=== PATIENT | female | born 1960 | race Caucasian/White ===

== ENCOUNTER 2018-11-24 18:22 | Emergency (ER) | payer SELFPAY ==
[~2018-11-24] VITALS: Ht 157.5 cm; Wt 72.6 kg
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
[2018-11-24] MEDS ORDERED: MORPHINE SULFATE INJ 4 MG/ML DISP.SYRIN ONE (19:58)
[2018-11-24] MEDS ORDERED: ONDANSETRON HCL/PF 4 MG/2 ML VIAL ONE (19:58)
[2018-11-24] MEDS ORDERED: ONDANSETRON HCL/PF 4 MG/2 ML VIAL IV ONE (20:00)
[2018-11-24] MEDS ORDERED: MORPHINE SULFATE INJ 2 MG/ML DISP.SYRIN IV ONE (20:00)
[2018-11-24] MEDS ORDERED: IV NS 0.9% 1,000 ML BAG IV ONE (20:00)
--- NOTE | 2018-11-24 20:00 | NUR ---
IV LINE OBTAINED ON R AC 18G. BLOOD DRAWN AND GIVEN TO TECH AT BEDSIDE.
[2018-11-24 20:03] LABS: BASOPHILS % (AUTO) 0.6 % (0.0-2.0); EOSINOPHILS % (AUTO) 0.9 % (0.0-6.0); HEMATOCRIT 41 % (33-45); HEMOGLOBIN 13.9 g/dL (11.5-14.8); LYMPHOCYTES # (AUTO) 1.6 /CMM (0.8-4.8); LYMPHOCYTES % (AUTO) 31.2 % (20.0-44.0); MEAN CORPUSCULAR HGB CONC 34 g/dl (31.0-36.0); MEAN CORPUSCULAR VOLUME 86 fL (82-100); MONOCYTES # (AUTO) 0.4 /CMM (0.1-1.30); MONOCYTES % (AUTO) 8.4 % (2.0-12.0); NEUTROPHILS # (AUTO) 3.1 /CMM (1.8-8.9); NEUTROPHILS % (AUTO) 58.9 % (43.0-81.0); PLATELET COUNT (AUTO) 236 /CMM (150-450); RED BLOOD CELL COUNT(AUTO) 4.72 MIL/uL (4.0-5.2); WHITE BLOOD COUNT (AUTO) 5.2 K/uL (4.3-11.0)
[2018-11-24 20:06] LABS: CREATININE 0.7 mg/dL (0.6-1.3); POTASSIUM 3.7 mmol/L (3.5-5.1)
--- NOTE | 2018-11-24 20:40 | NUR ---
RADIOLOGY CALLED FOR PT'S CT.
--- NOTE | 2018-11-24 20:50 | NUR ---
PT BEING WHEELED TO RADIOLOGY VIA [facility] FOR CT
[2018-11-24] MEDS ORDERED: IOHEXOL-300 100 ML VIAL IV ONE (20:55)
--- NOTE | 2018-11-24 21:05 | NUR ---
PT BACK FROM CT
--- NOTE | 2018-11-24 21:24 | NUR ---
PT TO BATHROOM VIA WHEELCHAIR ASSISTED BY HER NEIGHBOR.
--- NOTE | 2018-11-24 22:35 | NUR ---
AM,Patient discharged to home in stable condition. Written and verbal after care instructions given. Patient verbalizes understanding of instruction.IV removed. Catheter intact and site benign. Pressure and 4x4 applied to site. No bleeding noted. Pt ambulatory with a steady gait
[2018-11-24 22:51] VITALS: BP 109/68
== END 2018-11-24 22:35 | disposition home or self-care (01) ==
LOC: ER 18:38
DX: S20.212A Contusion of left front wall of thorax, initial encounter (principal); R10.12 Left upper quadrant pain; V49.49XA Driver injured in collision with other motor vehicles in traffic accident, initial encounter; Y93.89 Activity, other specified; Y92.413 State road as the place of occurrence of the external cause; Y99.8 Other external cause status
CPT/HCPCS: 36415; 71260; 74177; 80048; 85025; 96374; 96375; 99284; J2270; J2405; J7030; Q9967